=== PATIENT | female | born 1950 | race Caucasian/White ===

== ENCOUNTER → 2016-10-12 | Outpatient (CLI) | payer MEDICARE, BC ==
[~2016-10-12] MED LIST: BRINTELLIX10 MG PO; CARAFATE PO; CITRACAL200 M1 PO; COUMADIN6 MG PO; KLONOPIN0.5 MG PO; LOSARTAN POTASS50 MG PO; MELATONIN10 M2 PO; PERCOCET10 PO; PROTONIX PO; REQUIP0.5 MG PO; TRINTELLIX PO; VITAMIN D-32000 UNI1 PO
--- NOTE | ~2016-10-12 | EKG ---
PATIENT: KERA JUNIOR UNIT #: [id number] Ventricular Rate: 54 BPM Atrial Rate: 54 BPM P-R Interval: 136 ms QRS Duration: 76 ms Q-T Interval: 434 ms QTC Calculation(Bezet): 411 ms Calculated R Kilbourne: -3 degrees Calculated T Kilbourne: 74 degrees Diagnosis Line: Sinus bradycardia Diagnosis Line: Minimal voltage criteria for LVH, may be normal Diagnosis Line: variant Diagnosis Line: Nonspecific T wave abnormality Diagnosis Line: Abnormal ECG Diagnosis Line: No previous ECGs available Diagnosis Line: Confirmed by BROOKE ERAZO MD ([id number]) on 10/13/2016 Diagnosis Line: 6:00:07 PM INTERPRETING MD: CASTRO ASHRAF
--- NOTE | ~2016-10-12 | CR63 ---
[facility] A Service of [facility] RADIOLOGY TEXT RESULTS PATIENT: JUNIOR COTE LOCATION: [facility] : [birth year] UNIT #: [id number] AGE: [address]: Madan Eastman MD SEX: F ORDER DR: [id number] [id number] [facility]. [place], [place] [address] [id number] O MR#: [id number] Acc #: [id number] NAME: JUNIOR COTE : 1950 SEX: F STUDY DATE/TIME: 10/12/2016 10:55 UNIT: [facility] ROOM: STUDY DESCRIPTION: CR Chest 2 View Attending Physician: Madan Eastman M.D. Referring Physician: Madan Eastman M.D. Ordering Physician: Madan Eastman M.D. Primary Care Physician: Fidelina Diaz M.D. MEDICAL IMAGING REPORT This report is preliminary unless electronic signature is present EXAM Chest 10/12/2016. HISTORY 66-year-old woman; preop clearance for total left knee arthroplasty. Osteoarthritis, left knee. COMPARISON Chest none. FINDINGS 2-view chest demonstrates normal cardiac size and configuration. Hilar structures and mediastinal contours are preserved. Bilateral lungs are expanded and clear. There is contrast identified in the partially visualized colon from a previous procedure. Correlate clinically in this regard. IMPRESSION Negative chest. Residual colon contrast noted. Dictated by... Aaron Yu M.D. THIS IS AN ELECTRONICALLY VERIFIED REPORT Aaron Yu M.D. at 10/12/2016 2:05 PM IAIN/lucio TD: 10/12/2016 13:34 JOB #: [id number] [facility] A Service [facility] RADIOLOGY TEXT RESULTS PATIENT: JUNIOR COTE LOCATION: [facility] : 50 UNIT #: [id number] AGE: [address]: Madan Eastman MD SEX: F ORDER DR: MEDICAL IMAGING REPORT Page 1 of 1 COPY
[2016-10-12 09:47] LABS: URINE APPEARANCE CLEAR; URINE BILIRUBIN NEG (NEG); URINE BLOOD NEG (NEG); URINE COLOR YELLOW; URINE GLUCOSE NEG (NEG); URINE KETONE NEG (NEG); URINE LEUKOCYTE ESTERASE NEG (NEG); URINE NITRATE NEG (NEG); URINE PH 5.5 (5-8); URINE PROTEIN NEG (NEG); URINE SPECIFIC GRAVITY 1.008 (1.003-1.035); URINE UROBILINOGEN 0.2 MG/DL (NEG)
[2016-10-12 09:51] LABS: CULTURE INDICATED? NO; URINE SOURCE CLEAN CATCH
[2016-10-12 09:55] LABS: HEMATOCRIT 44.9 % (35.0-45.0); HEMOGLOBIN 14.9 gm/dL (12.0-16.0); MEAN CELL VOLUME 90.2 FL (83-96); MEAN CORPUSCULAR HEMOGLOBIN 29.9 PG (28-34); MEAN CORPUSCULAR HGB CONC 33.1 g/dL (30-36); MEAN PLATELET VOLUME 8.2 FL (6.5-11.5); RED BLOOD COUNT 4.98 X10e (3.90-5.30); RED CELL DISTRIBUTION WIDTH 15.1 % (11.0-15.5); WHITE BLOOD COUNT 5.4 X10e3 (4.0-10.5)
[2016-10-12 10:08] LABS: PROTHROMBIN TIME (PATIENT) 10.1 SECONDS (9.6-11.5)
[2016-10-12 10:49] LABS: ALBUMIN SERUM 4.2 g/dL (3.5-5.0); BILIRUBIN,TOTAL 0.9 mg/dL (0.2-2.0); BUN/CREATININE RATIO 25.71; CALCIUM SERUM 9.8 mg/dL (8.4-10.2); CREATININE SERUM 0.7 mg/dL (0.6-1.4); GLOM FILT RATE Estimated 90.3 mL/min (>60); POTASSIUM 4.2 mmol/L (3.5-5.1); PROTEIN TOTAL SERUM 7.1 g/dL (6.0-8.3)
== END | disposition home or self-care (01) ==
LOC: CAMB 08-17 09:30 → EDSTATUS 09:30 → CAMB 09:30
PROVIDERS: Orthopaedic Surgery
DX: Z01.818 Encounter for other preprocedural examination (principal); M17.12 Unilateral primary osteoarthritis, left knee; I10 Essential (primary) hypertension; G25.81 Restless legs syndrome; F32.9 Major depressive disorder, single episode, unspecified; E78.5 Hyperlipidemia, unspecified; Z79.01 Long term (current) use of anticoagulants
CPT/HCPCS: 36415; 71020; 80053; 81003; 85027; 85610; 86850; 86900; 86901; 87070; 93005

== ENCOUNTER 2016-10-31 07:38 | Inpatient (IN) | payer MEDICARE, BC ==
--- NOTE | ~2016-10-31 | CO ---
Unit #: [id number] #: [id number] Patient: JUNIOR COTE [id number] [place], [place] [address] [id number] MR#: [id number] NAME: JUNIOR COTE ROOM: Age: 66 Sex: F Admission Date: 10/31/2016 : 1950 Attending Physician: Madan Eastman M.D. Consultation Date: 10/12/2016 CONSULTATION REPORT REASON FOR CONSULTATION Preoperative medical evaluation prior to left total knee arthroplasty scheduled by Dr. Eastman for 10/31/2016. HISTORY OF PRESENT ILLNESS The patient is a 66-year-old female, who presents to preprocedural screening for the reasons indicated above. She reports pain in the left knee in a seated position is approximately 5/10 at the time of this interview. She denies arm, neck, jaw, chest, back pain, or pressure. Denies dyspnea on exertion, paroxysmal nocturnal dyspnea, orthopnea, or snoring while asleep. She denies lightheadedness, dizziness, syncope, or presyncope. She denies history of myocardial infarction, congestive heart failure, CVA, TIA, chronic kidney disease, and/or diabetes mellitus. She has no wounds on her skin at this time. She has been evaluated by Dr. Eastman and scheduled for the above-referenced procedure. PAST MEDICAL HISTORY Osteoarthritis, hypertension, restless legs syndrome, depression, anxiety, hyperlipidemia, history of postoperative nausea, GERD, history of skin cancer, insomnia, and sinus bradycardia. PAST SURGICAL HISTORY 1. Breast reduction. 2. Total hysterectomy. 3. Right femur repair. 4. Raza removed from right femur. 5. Lumpectomy of the right breast for cyst. 6. Right knee arthroscopy. The patient reports nausea with some surgeries in the past. She denies a family history of complications to anesthesia. ALLERGIES Penicillin, which she thinks causes a rash. She was young when she was told she had a history of penicillin and is not certain that this was her reaction. She denies latex allergy. CURRENT MEDICATIONS Losartan potassium 50 mg p.o. daily, Brintellix 10 mg p.o. daily, vitamin D3 2000 units p.o. daily, melatonin 10 mg p.o., Requip 0.5 mg p.o. at bedtime (two tabs), Protonix 40 mg p.o. daily, Carafate 1 g p.o. t.i.d. as a slurry before meals. SOCIAL HISTORY Denies tobacco use or illicit drug use. Consumes alcohol socially. Unit #: [id number] #: [id number] Patient: JUNIOR COTE FAMILY HISTORY Mother, father, and brother all with different forms of cancer. No immediate family history of coronary artery disease. Confirmed diabetes mellitus, congestive heart failure, stroke. REVIEW OF SYSTEMS History of asymptomatic sinus bradycardia. A 10-point review of systems is conducted and negative except as indicated under history of present illness above. PHYSICAL EXAMINATION GENERAL: A 66-year-old female, awake, alert, in no acute distress. VITAL SIGNS: Temperature 98.2, heart rate 54, respiratory rate 16, blood pressure 154/89, oxygen saturation 97% on room air. HEENT: Atraumatic and normocephalic. Sclerae anicteric. No discharge from eyes, ears, or nares. LYMPH: No preauricular, postauricular, tonsillar, submental, or anterior-posterior cervical adenopathy. ENDOCRINE: No thyromegaly, thyroid nodules, or tenderness. RESPIRATORY: Clear to auscultation in all cain bilaterally without wheezes, rhonchi, or rales. CARDIOVASCULAR: S1, S2. Regular rate and rhythm without murmur or rub. GI: Bowel sounds are positive x4. Soft, nontender, nondistended. EXTREMITIES: No edema, cyanosis, or clubbing. MUSCULOSKELETAL: Strength 5/5 in all extremities bilaterally to flexion extension without tenderness or obvious atrophy. NEUROLOGIC: Alert and oriented x3. Speech clear. Cranial nerves 2 through 12 are grossly intact. DIAGNOSTIC STUDIES LABORATORY RESULTS: WBC 5.4, hemoglobin 14.9, hematocrit 44.9, platelets 238,000. Sodium 139, potassium 4.2, chloride of 102, CO2 of 28, glucose 92, BUN 18, creatinine 0.7, calcium 9.8, AST 23, ALT 19, alkaline phos 86, bilirubin total 0.9, total protein 7.1, albumin 4.2, PT 10.1, INR 1.0. Urinalysis, negative with neither microscopic nor culture indicated. Blood type O positive, antibody screen negative. MRSA nasal swab report pending at this time. IMAGING STUDIES: Two-view chest x-ray report pending at this time. CARDIOVASCULAR STUDIES: 12-lead EKG; sinus bradycardia, minimal voltage criteria for LVH may be normal variant, nonspecific T-wave abnormality. Abnormal ECG. Confirmed report pending at this time. IMPRESSION The patient is a 66-year-old female, who presents to preprocedural screening for; 1. Preoperative medical evaluation prior to left total knee arthroplasty as dictated above. The patient's Ibarra revised cardiac risk index is equal to 0.4%. This represents the patient's perioperative risk of fatal or nonfatal myocardial infarction, cardiopulmonary arrest, arrhythmia and/or pulmonary edema. This has been discussed in detail with the patient. She wishes to proceed with surgery as scheduled at this time. 2. Hypertension. Blood pressure is mildly elevated today. We will continue current medications. Monitor blood pressure and adjust medications perioperatively. Unit #: [id number] #: [id number] Patient: JUNIOR COTE 3. Restless legs syndrome. We will continue Requip and monitor perioperatively. 4. Depression and anxiety, stable. Continue current home medication. 5. Hyperlipidemia. 6. History of postoperative nausea. The patient will have antiemetics ordered perioperatively. 7. Gastroesophageal reflux disease. Continue Protonix and Carafate. 8. Osteoarthritis. 9. History of skin cancer. 10. Insomnia. We will continue melatonin and discontinue p.r.n. for sedation. 11. History of asymptomatic sinus bradycardia. We will consider placing the patient on property assessment monitor (low level postoperatively on the orthopedic unit). Thank you for allowing us to participate in the care of this patient. We will gladly follow the patient for postoperative medical management pending order of Dr. Eastman. Dictated by... Ledy Downing A.P.R.N. for Cristiana Forrester/desean TD: 10/13/2016 03:36 JOB #: [id number] CONSULTATION REPORT Page 1 of 1 X Ledy Downing APRN CONSULTATION REPORT
--- NOTE | ~2016-10-31 | DS ---
Unit #: [id number] #: [id number] Patient: JUNIOR COTE [id number] [facility] [address] [facility]. [place], [place] [address] [id number] I MR#: [id number] NAME: JUNIOR COTE ROOM: 450 Age: 66 Sex: F Admission Date: 10/31/2016 : 1950 Discharge Date: 11/01/2016 Attending Physician: Madan Eastman M.D. Referring Physician: Madan Eastman M.D. Primary Care Physician: Fidelina Diaz M.D. DISCHARGE SUMMARY REASON FOR ADMISSION Severe osteoarthritis of the left knee. PROCEDURES Left total knee arthroplasty. HOSPITAL COURSE The patient was admitted to [facility] with a history of severe osteoarthritis of the left knee. The patient had undergone to above procedure. The patient tolerated the procedure well. There is no complications. Today the patient is in stable condition. Her temperature is 97.4, blood pressure 132/63, heart rate is 54 and regular, respirations 18. Her incision is healing well and neurovascular exam is intact with 2+ pulses in the lower extremities. Plan would be to discharged her later today. Safe for physical therapy. DISPOSITION Home with [facility]. PERTINENT LABS PT was 14.0, INR 1.3 hemoglobin 12.0. MEDICATIONS Per med rec list, she will be on regular home medications, plus Coumadin and Percocet for pain control. FOLLOWUP INSTRUCTIONS The patient would be discharged home under the care of [facility], is safe for physical therapy. She will need PT and INR done on 11/02/2016, 11/03/2016, 11/04/2016, 11/07/2016, 11/10/2016, 11/14/2016, 11/17/2016, 11/21/2016, 11/24/2016 and 11/28/2016. Patient will need to wear DIA hose during the day and off at night. Patient should not drive until seen by Dr. Eastman. The patient should not drive until seen by Dr. Eastman. The patient will participate in physical therapy, including active and active assist range of motion and strengthening, progressive ambulation beginning with a walker. Progress to a cane as tolerated. The patient will be on Coumadin 6 mg today and one dose of Lovenox. Dictated by... Jason Hopkins P.A.-C- KF/ts Unit #: [id number] #: [id number] Patient: JUNIOR COTE TD: 11/01/2016 09:10 JOB #: [id number] DISCHARGE SUMMARY Page 1 of 1 X X DISCHARGE SUMMARY
--- NOTE | ~2016-10-31 | OR ---
Unit #: [id number] #: [id number] Patient: JUNIOR COTE [id number] [address] [place], [place] [address] [id number] I MR#: [id number] NAME: JUNIOR COTE ROOM: 450 Date of Procedure: 10/31/2016 Admission Date: 10/31/2016 Surgeon: Madan Eastman M.D. : 1950 Attending Physician: Madan Eastman M.D. Referring Physician: Madan Eastman M.D. Primary Care Physician: Fidelina Diaz M.D. OPERATIVE REPORT PREOPERATIVE DIAGNOSIS Primary localized osteoarthritis of the left knee. POSTOPERATIVE DIAGNOSIS Primary localized osteoarthritis of the left knee. PROCEDURE PERFORMED Left total knee. ASSISTANTS Yasmin Davis and Gian Rosas. ANESTHESIA Adductor canal block plus general. ESTIMATED BLOOD LOSS 100 mL. INDICATIONS FOR PROCEDURE The patient is a 66-year-old lady with progressive pain in her left knee. It has gotten to the point now, where the pain limits her standing, walking, and her activities of daily living. X-rays show she has [id number] with subchondral sclerosis. She has tried injections and anti-inflammatories with no relief or discomfort. She was brought to the hospital today for left total knee. DESCRIPTION OF PROCEDURE The patient was brought to the holding room, given 1500 mg of vancomycin. This will be continued for the next 23 hours postop. The patient then had an adductor canal block performed. She was brought back to the operating room and given a general anesthetic. Tourniquet placed around the left thigh. The left leg was prepped and draped in a sterile fashion. Tourniquet was inflated to 250. A straight anterior skin incision was made. The subcutaneous dissected away and a medial arthrotomy performed. Patella was slid to the side. Osteophytes were removed from the femur. Intramedullary guide was used and a 6-degree valgus cut was made on the distal femur. After this was done, it was sized using the ATTUNE sizing guide from [employer] and found to be a size 5. The anterior-posterior cutting block was applied. Rotation was checked in the knee. Anterior and posterior cuts were made along with the chamfer cuts and we then made the trochlear groove cut. Proximal tibial cut was made using the external guide. It was sized at a 4. The patient then had any remaining meniscal Unit #: [id number] #: [id number] Patient: COTE,JUNIOR fragments debrided and posterior condylar osteophytes were removed. The trial femur was applied. The drill holes were made for lugs on the femoral component. Trial tibia was applied with 5 insert. The knee came to full extension and good stability in extension and flexion. Rotation of the tibia was marked and the external alignment guide showed appropriate alignment of the limb. The patella was grasped with 2 towel clips. It was found to be the 20 mm thick, cut smooth at 13 and a 35 patella was the appropriate size. The 3 drill holes were made. Trial patella applied and it tracked properly. We then injected the posterior capsule and periosteum with ropivacaine. The drill and punch were used to prepare the tibia for the tray. The knee was irrigated and dried while the cement was mixed. Then, all 3 components were cemented simultaneously. Once again, it was a size 5 ATTUNE femoral component from [employer] cruciate retaining size 4 tibial base plate, and a 35 patella from the ATTUNE system as well. After the cement was hardened, it was judged that the 5 insert was the appropriate thickness, so this was opened and applied to the tray. The tourniquet was released. Hemostasis was obtained and then the wound was closed using 0 Ethibond in the arthrotomy, 0 and 2-0 Vicryl in the subcutaneous, and the skin was closed with a Prineo wound closure. physician assistant psychiatry, Yasmin Davis present throughout the entire case. Blood loss 100 mL. Dictated by... Cristiana Dong/desean TD: 11/02/2016 07:15 JOB #: [id number] OPERATIVE REPORT Page 1 of 1 X Madan Eastman MD PROCEDURE OPERATIVE NOTE
[~2016-10-31 07:38] MED LIST changes: -CITRACAL200 M1 PO; -COUMADIN6 MG PO; -KLONOPIN0.5 MG PO; -PERCOCET10 PO; -TRINTELLIX PO
[2016-10-31] MEDS ORDERED: TRINTELLIX PO (08:05)
[2016-10-31] MEDS ORDERED: KLONOPIN0.5 MG PO (08:06)
[2016-10-31] MEDS ORDERED: CITRACAL200 M1 PO (08:07)
[2016-11-01 03:25] LABS: HEMATOCRIT 38.1 % (35.0-45.0)
[2016-11-01 03:38] LABS: INR 1.3
[2016-11-01 03:48] LABS: BUN/CREATININE RATIO 22.85; CALCIUM SERUM 9.1 mg/dL (8.4-10.2); CREATININE SERUM 0.7 mg/dL (0.6-1.4); GLOM FILT RATE Estimated 90.3 mL/min (>60); POTASSIUM 4.9 mmol/L (3.5-5.1)
[2016-11-01] MEDS ORDERED: COUMADIN6 MG PO (11:58)
[2016-11-01] MEDS ORDERED: PERCOCET10 PO (11:58)
== END 2016-11-01 14:30 | disposition home health service (06) | DRG 470 ==
LOC: CSUR 07:38 → CPACUOF 08:18 → CSUR 09:00 → C4B 11:43 → CPACUOF 11:43 → C4B 11-01 14:30
PROVIDERS: Nurse Practitioner; Orthopaedic Surgery
PROC: 0SRD0J9 Replacement of Left Knee Joint with Synthetic Substitute, Cemented, Open Approach (ICD-10-PCS; principal; 2016-11-01)
DX: M17.12 Unilateral primary osteoarthritis, left knee (principal); I10 Essential (primary) hypertension; E78.5 Hyperlipidemia, unspecified; F32.9 Major depressive disorder, single episode, unspecified; G25.81 Restless legs syndrome; Z96.651 Presence of right artificial knee joint; Z90.710 Acquired absence of both cervix and uterus; Z88.0 Allergy status to penicillin; R73.9 Hyperglycemia, unspecified
CPT/HCPCS: 80048; 83735; 85014; 85018; 85610; 94760; 97110; 97116; 97161; 97530; C1713; C1776; G8978-GP; G8979-GP; G8980-GP; J0131; J0171; J0735; J1100; J1170; J1650; J1885; J2250; J2405; J2795; J3010; J3370